=== PATIENT | male | born 1965 | race Caucasian/White ===

== ENCOUNTER 2016-09-24 11:37 | Emergency (ER) | payer MEDICARE ==
--- NOTE | 2016-09-24 12:04 | ER Document Report ---
ED Medical Screen (RME) - General Stated Complaint: CHEST WALL, BACK PAIN Time seen by provider: 12:02 Mode of Arrival: Ambulatory Information source: Patient Notes: 51-year-old male with right-sided back pain that starts in the right lower thoracic back radiates to the top of his head. radiates into the right scapula into the shoulder and through to his anterior chest. It originally started to thousand 13 but it has worsened over the past week. It's more with palpation and movement of his right shoulder. History of some thoracic herniated disks. Hx disc deg disease and fibromyalgia. I have greeted and performed a rapid initial assessment of this patient. A comprehensive ED assessment, evaluation of the patient, analysis of test results , and completion of the medical decision making process will be conducted by additional ED providers. Physical Exam - Vital signs Vitals: Temp Pulse Resp BP Pulse Ox 97.5 F 84 16 141/85 H 99 09/24/16 11:41 09/24/16 11:41 09/24/16 11:41 09/24/16 11:41 09/24/16 11:41 Course - Vital Signs Vital signs: Temp Pulse Resp BP Pulse Ox 97.5 F 84 16 141/85 H 99 09/24/16 11:41 09/24/16 11:41 09/24/16 11:41 09/24/16 11:41 09/24/16 11:41
--- NOTE | 2016-09-24 12:59 | EKG REPORT ---
SEVERITY:- NORMAL ECG - SINUS RHYTHM : Confirmed by: Sylvester Espinoza 24-Sep-2016 12:58:49
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
[2016-09-24 15:27] VITALS: BP 111/57
== END 2016-09-24 15:27 | disposition home or self-care (01) ==
LOC: ER 11:37
DX: S29.012A Strain of muscle and tendon of back wall of thorax, initial encounter (principal); M25.511 Pain in right shoulder; M54.9 Dorsalgia, unspecified; R07.89 Other chest pain; X58.XXXA Exposure to other specified factors, initial encounter
CPT/HCPCS: 71020; 93005; 93010; 99283

== ENCOUNTER 2018-07-06 07:30 | Observation (INO) | payer OTHER, MEDICARE ==
--- NOTE | 2018-07-06 07:59 | ER Document Report ---
ED General - General Chief Complaint: Rectal Abscess Stated Complaint: POSSIBLE ABSCESS Time Seen by Provider: 07/06/18 07:58 Notes: Patient is a 53-year-old male that presents to the emergency department for chief complaint of anal pain, and suspecting abscess. Patient states that his been having pain particularly bowel movements over the past month, but it got particularly worse on Friday and over the course of this weekend. He is noted some bloody drainage, into the anus, denies noting any pus drainage. He states he has had carbuncles in the past, and a history of hemorrhoids in the past as well. He currently rates his pain as a 9 out of 10, worse with sitting, worse with passing bowel movements. Describes as a constant aching and occasionally sharp sensation. Denies having fevers, chills, lightheadedness. He states due to the pain he did vomit, and he tried to squeeze it to drain it, and he states he passed out from that briefly. He denies any other complaints at this time. Past Medical History: Fibromyalgia, GERD Past Surgical History: Cervical spine fusion, ankle fusion Social History: Admits to rare alcohol use, denies tobacco or illicit drug use. Family History: Reviewed and noncontributory for presenting illness Allergies: Reviewed, see documented allergy list. REVIEW OF SYSTEMS: Other than noted above, the 12 point review of systems was reviewed with the patient and were negative, all pertinent findings are included in the HPI. PHYSICAL EXAMINATION: Vital signs reviewed, nursing noted reviewed. GENERAL: Well-appearing, well-nourished and appears uncomfortable HEAD: Atraumatic, normocephalic. EYES: Eyes appear normal, extraocular movements intact, sclera anicteric, conjunctiva are normal. ENT: nares patent, oropharynx clear without exudates. Moist mucous membranes. NECK: Normal range of motion, supple without lymphadenopathy LUNGS: Breath sounds clear to auscultation bilaterally and equal. No wheezes rales or rhonchi. HEART: Regular rate and rhythm without murmurs ABDOMEN: Soft, nontender, normoactive bowel sounds. No rebound, guarding, or rigidity. No masses appreciated. Anal exam: External anal exam demonstrates what appears to be possible external hemorrhoid at the 2 to 3 o'clock position, tenderness to palpation, visualized with ultrasound, no appreciable abscess, or underlying soft tissue mass. EXTREMITIES: Nontender, good range of motion, no pitting or edema. NEUROLOGICAL: No focal neurological deficits. Moves all extremities spontaneously Motor and sensory grossly intact on exam. PSYCH: Normal mood, normal affect. SKIN: Warm, Dry, normal turgor, no rashes or lesions noted on exposed skin TRAVEL OUTSIDE OF THE [place] IN LAST 30 DAYS: No - Related Data Allergies/Adverse Reactions: Sulfa (Sulfonamide Antibiotics) Allergy (Verified 07/06/18 07:31) Past Medical History - Social History Smoking Status: Never Smoker Family History: Arthritis, CAD, DM, Hyperlipidemia, Hypertension Renal/ Medical History: Denies: Hx Peritoneal Dialysis Musculoskeletal Medical History: Reports Hx Arthritis, Reports Hx Fibromyalgia, Reports Hx Muscle Weakness, Reports Hx Musculoskeletal Deformity, Reports Hx Musculoskeletal Trauma Traumatic Medical History: Reports: Hx Fractures Past Surgical History: Reports: Hx Abdominal Surgery - Hernia, Hx Orthopedic Surgery - neck, right ankle - Immunizations Immunizations up to date: Yes Hx Diphtheria, Pertussis, Tetanus Vaccination: Yes Physical Exam - Vital signs Vitals: Temp Pulse Resp BP Pulse Ox 98.0 F 86 16 138/85 H 99 07/06/18 07:34 07/06/18 07:34 07/06/18 07:34 07/06/18 07:34 07/06/18 07:34 Course - Re-evaluation Re-evalutation: Patient seen and examined, he was rather tender with palpation to the monty-anal region on the right, as noted nothing appreciated on ultrasound, I did call the surgeon automation tester Dr. Gu who came to see the patient in the ED, for evaluation, on his examination, he felt that the patient was experiencing a rectal abscess, and recommended operative intervention, which the patient was agreeable to. Patient had IV placed, IV fluids ordered, basic blood work and EKG ordered for preoperative evaluation. Patient agreeable to this plan of care. He was given 1 dose of Percocet for his pain, he had not eaten in several days. Blood work reviewed, mild leukocytosis, which is not unexpected for the patient' s presenting issue, and will be taken to the OR for operative management, patient stable prior to transfer to the OR. Laboratory 07/06/18 07/06/18 08:50 08:50 WBC 13.4 H RBC 4.73 Hgb 14.7 Hct 43.4 MCV 92 MCH 31.1 MCHC 33.9 RDW 13.1 Plt Count 225 Seg Neutrophils % 77.7 Lymphocytes % 12.0 L Monocytes % 9.4 Eosinophils % 0.4 Basophils % 0.5 Absolute Neutrophils 10.4 H Absolute Lymphocytes 1.6 Absolute Monocytes 1.3 Absolute Eosinophils 0.0 Absolute Basophils 0.1 Sodium 139.0 Potassium 4.1 Chloride 106 Carbon Dioxide 28 Anion Gap 5 BUN 12 Creatinine 0.94 Est GFR ( Amer) > 60 Est GFR (Non-Af Amer) > 60 Glucose 110 Calcium 9.3 - Vital Signs Vital signs: Temp Pulse Resp BP Pulse Ox 98.0 F 86 16 138/85 H 99 07/06/18 07:34 07/06/18 07:34 07/06/18 07:34 07/06/18 07:34 07/06/18 07:34 - Laboratory Result Diagrams: 07/06/18 08:50 07/06/18 08:50 Laboratory results interpreted by me: 07/06/18 08:50 WBC 13.4 H Lymphocytes % 12.0 L Absolute Neutrophils 10.4 H - EKG Interpretation by Me Additional EKG results interpreted by me: EKG demonstrates sinus rhythm with a ventricular rate of 64 bpm, normal axis, normal intervals, no evidence of acute ischemia on this EKG. Discharge - Discharge Clinical Impression: Perirectal abscess Condition: Stable Disposition: ADMITTED INPATIENT Admitting Provider: Surgicalist - Dr. Gu Unit Admitted: OR
[2018-07-06] MEDS ORDERED: OXYCODONE-ACETAMINOPHEN 5-325 MG TABLET PO ONE (08:18)
[2018-07-06] MEDS ORDERED: RINGERS SOLUTION,LACTATED 1,000 ML IV ONE (08:39)
[2018-07-06 09:00] LABS: ABSOLUTE BASOPHILS # (AUTO) 0.1 10^3/uL (0.0-0.2); ABSOLUTE LYMPHOCYTES (AUTO) 1.6 10^3/uL (0.5-4.7); ABSOLUTE MONOCYTES (AUTO) 1.3 10^3/uL (0.1-1.4); ABSOLUTE NEUT (AUTO) 10.4 10^3/uL (1.7-8.2); BASOPHILS % (AUTO) 0.5 % (0-2); EOSINOPHILS % (AUTO) 0.4 % (0-6); HEMATOCRIT 43.4 % (37.9-51.0); HEMOGLOBIN 14.7 g/dL (13.5-17.0); MEAN CORPUSCULAR HEMOGLOBIN 31.1 pg (27.0-33.4); MEAN CORPUSCULAR HGB CONC 33.9 g/dL (32.0-36.0); MEAN CORPUSCULAR VOLUME 92 fl (80-97); MONOCYTES % (AUTO) 9.4 % (3-13); PLATELET COUNT 225 10^3/uL (150-450); RED BLOOD COUNT 4.73 10^6/uL (4.35-5.55); RED CELL DISTRIBUTION WIDTH 13.1 % (11.5-14.0); SEGMENTED NEUTROPHILS % (AUTO) 77.7 % (42-78); TOTAL CELLS COUNTED % (AUTO) 100 %; WHITE BLOOD COUNT 13.4 10^3/uL (4.0-10.5)
[2018-07-06 09:26] LABS: ANION GAP 5 (5-19); BLOOD UREA NITROGEN 12 mg/dL (7-20); CALCIUM 9.3 mg/dL (8.4-10.2); CARBON DIOXIDE 28 mmol/L (22-30); CHLORIDE 106 mmol/L (98-107); GLUCOSE 110 mg/dL (75-110); POTASSIUM 4.1 mmol/L (3.6-5.0)
[2018-07-06] MEDS ORDERED: METRONIDAZOLE 500 MG/NS RTU 500 MG/100 ML RTUPB IV ONE (10:17)
[2018-07-06] MEDS ORDERED: CEFAZOLIN INJ 1 GM VIAL ONE (10:17)
[2018-07-06] MEDS ORDERED: PROPOFOL INJ 200 MG/20 ML VIAL IV ONE (10:20)
[2018-07-06] MEDS ORDERED: MIDAZOLAM 2 MG/2 ML INJ ONE (10:20)
[2018-07-06] MEDS ORDERED: FENTANYL CITRATE INJ/PF 100 MCG/2 ML AMPUL ONE (10:20)
[2018-07-06] MEDS ORDERED: BUPIVACAINE HCL/DEX-WATER/PF 15 MG/2 ML AMPULE ONE (10:29)
--- NOTE | 2018-07-06 10:36 | PDOC H&P ---
History of Present Illness Admission Date/PCP: 07/06/18 08:51 Patient complains of: Perirectal pain and drainage, fevers, chills History of Present Illness: LARA TAVERAS is a 53 year old male with a 3-day history of perirectal pain, erythema, and new onset drainage. The patient reports fevers and chills over the intervening days. The patient reports that he traveled to the emergency department because he could not go to work today because of the pain. His pain is sharp and stabbing. It radiates toward his perineum. His pain is unrelenting, and he rates it at 10 out of 10. The patient reports that this morning it began draining foul-smelling liquid. Palpation and movement make his pain worse. Nothing makes it better. The patient denies a history of Crohn 's disease or diabetes. Past Medical History Musculoskeltal Medical History: Reports: Arthritis, Fibromyalgia Past Surgical History Past Surgical History: Reports: Orthopedic Surgery - neck, right ankle Social History Smoking Status: Never Smoker Hx Recreational Drug Use: No - Advance Directive Resuscitation Status: Full Code Family History Family History: Arthritis, CAD, DM, Hyperlipidemia, Hypertension Parental Family History Reviewed: Yes Children Family History Reviewed: Yes Sibling(s) Family History Reviewed.: Yes Medication/Allergy Home Medications: Fluoxetine HCl [Prozac] 40 mg PO DAILY 07/06/18 Allergies/Adverse Reactions: Sulfa (Sulfonamide Antibiotics) Allergy (Verified 07/06/18 07:31) Review of Systems Constitutional: PRESENT: anorexia, chills, fatigue, fever(s), weakness. ABSENT : headache(s) Eyes: ABSENT: visual disturbances Ears: ABSENT: hearing changes Nose, Mouth, and Throat: ABSENT: sore throat Cardiovascular: ABSENT: chest pain, palpitations Respiratory: ABSENT: cough, dyspnea Gastrointestinal: PRESENT: nausea, other - Perirectal pain and drainage. ABSENT : abdominal pain Genitourinary: ABSENT: dysuria Musculoskeletal: ABSENT: back pain Integumentary: PRESENT: erythema - Very rectal. ABSENT: pruritus, rash Neurological: ABSENT: confusion, convulsions, dizziness, numbness Endocrine: ABSENT: cold intolerance, heat intolerance Hematologic/Lymphatic: ABSENT: easy bleeding, easy bruising Physical Exam Vital Signs: Temp Pulse Resp BP Pulse Ox 98.0 F 86 16 138/85 H 99 07/06/18 07:34 07/06/18 07:34 07/06/18 07:34 07/06/18 07:34 07/06/18 07:34 Intake & Output 07/05/18 07/06/18 07/07/18 06:59 06:59 06:59 Intake Total 1000 Balance 1000 General appearance: PRESENT: mild distress - Perirectal pain Head exam: PRESENT: atraumatic, normocephalic Eye exam: PRESENT: EOMI, PERRLA. ABSENT: scleral icterus Mouth exam: PRESENT: neck supple Neck exam: ABSENT: meningismus, tenderness, thyromegaly, tracheal deviation Respiratory exam: PRESENT: clear to auscultation karla, unlabored. ABSENT: chest wall tenderness, tachypnea, wheezes Cardiovascular exam: PRESENT: RRR Pulses: PRESENT: normal radial pulses Vascular exam: PRESENT: normal capillary refill. ABSENT: pallor GI/Abdominal exam: PRESENT: soft. ABSENT: distended, firm, tenderness Rectal exam: PRESENT: normal rectal tone, other - Perirectal abscess, draining purulent material Extremities exam: ABSENT: clubbing Musculoskeletal exam: ABSENT: deformity Neurological exam: PRESENT: alert, awake, oriented to person, oriented to place , oriented to time, oriented to situation, CN II-XII grossly intact Psychiatric exam: ABSENT: agitated, anxious, depressed Focused psych exam: ABSENT: delusional Skin exam: ABSENT: cyanosis, erythema, jaundice Assessment & Plan - Diagnosis (1) Perirectal abscess Is this a current diagnosis for this admission?: Yes - Plan Summary Plan Summary: This is a 53-year-old male with a moderate sized perirectal abscess. It is actively draining purulent material. He has erythema and tenderness extending out onto the buttock. I have recommended hospitalization, IV antibiotics, and operative drainage. The patient has agreed to this. Risks/benefits discussed, informed consent obtained, and all questions answered.
[2018-07-06] MEDS ORDERED: FENTANYL CITRATE INJ/PF 100 MCG/2 ML AMPUL IV PRN ×3 (11:00)
[2018-07-06] MEDS ORDERED: MEPERIDINE HCL/PF INJ 25 MG/1 ML DISP.SYRIN IV PRN (11:00)
[2018-07-06] MEDS ORDERED: DIPHENHYDRAMINE HCL 50 MG/ML VIAL IV PRN (11:00)
[2018-07-06] MEDS ORDERED: PROMETHAZINE HCL INJ 25 MG/1 ML VIAL IV PRN ×2 (11:00)
[2018-07-06] MEDS ORDERED: BUPIVACAINE HCL 0.25 % INJ/PF (2.5 MG/1 ML) 30 ML VIAL ONE (11:04)
[2018-07-06] MEDS ORDERED: BUPIVACAINE HCL 0.25 % INJ/PF (2.5 MG/1 ML) 30 ML VIAL INJ ONE (11:08)
[2018-07-06] MEDS ORDERED: BACITRACIN ZINC OINTMENT 15 GM ONE (11:15)
[2018-07-06] MEDS ORDERED: LIDOCAINE 2% JELLY 30 ML TUBE ONE (11:15)
[2018-07-06] MEDS ORDERED: ONDANSETRON HCL INJ/PF 4 MG/2 ML SDV IV PRN (11:23)
[2018-07-06] MEDS ORDERED: HYDROCODONE/ACETAMINOPHEN 10-325 MG TABLET PO PRN (11:25)
[2018-07-06] MEDS ORDERED: BACITRACIN ZINC OINTMENT 15 GM TP ONE (11:28)
[2018-07-06] MEDS ORDERED: LIDOCAINE 2% JELLY 5 ML TUBE MM ONE (11:29)
--- NOTE | 2018-07-06 11:35 | Operative Report ---
Nonrecallable Operative Report DATE OF SURGERY: 07/06/18 PREOPERATIVE DIAGNOSIS: Perirectal abscess POSTOPERATIVE DIAGNOSIS: Perirectal abscess OPERATION: Incision and drainage of perirectal abscess SURGEON: LUCILA KNOWLES ANESTHESIA: Spinal - With MAC TISSUE REMOVED OR ALTERED: None COMPLICATIONS: None apparent ESTIMATED BLOOD LOSS: Minimal PROCEDURE: Drains/implants: 4 x 4 gauze. Procedure in detail: After informed consent was obtained, the patient was brought to the operating room and laid in the left lateral decubitus position. The area of the rectum was prepped and draped in a normal sterile fashion. An anal block was created with quarter percent Marcaine. Once this was completed, a scalpel was used to incise the perirectal abscess. It was situated at approximately the 3 o'clock position. A cavity was identified, and purulent material was expressed. The cavity was laid open widely. The wound was then covered with 4 x 4 gauze. The procedure at this time was concluded. All sponge , instrument, and needle counts were correct x2. Condition: Stable.
[2018-07-06 13:21] VITALS: BP 124/61
--- NOTE | 2018-07-06 13:27 | EKG REPORT ---
SEVERITY:- NORMAL ECG - SINUS RHYTHM : Confirmed by: Peng Oden MD 06-Jul-2018 13:26:36
[2018-07-06] MEDS ORDERED: ONDANSETRON HCL INJ/PF 4 MG/2 ML SDV ONE (13:53)
[2018-07-06] MEDS ORDERED: KETOROLAC TROMETHAMINE INJ/PF 30 MG/1 ML SDV IV SCH (14:00)
--- NOTE | 2018-07-06 17:00 | PDOC DISCHARGE SUMMARY ---
General - Admit/Disc Date/PCP Admission Date/Primary Care Provider: 07/06/18 08:51 Discharge Date: 07/06/18 - Discharge Diagnosis (1) Perirectal abscess Is this a current diagnosis for this admission?: Yes - Additional Information Resuscitation Status: Full Code Discharge Diet: As Tolerated Discharge Activity: Activity As Tolerated, Balance Activity w/Rest Home Medications: Fluoxetine HCl [Prozac] 40 mg PO DAILY 07/06/18 History of Present Illness History of Present Illness: LARA TAVERAS is a 53 year old male with a 3-day history of perirectal pain, erythema, and new onset drainage. The patient reports fevers and chills over the intervening days. The patient reports that he traveled to the emergency department because he could not go to work today because of the pain. His pain is sharp and stabbing. It radiates toward his perineum. His pain is unrelenting, and he rates it at 10 out of 10. The patient reports that this morning it began draining foul-smelling liquid. Palpation and movement make his pain worse. Nothing makes it better. The patient denies a history of Crohn 's disease or diabetes. Hospital Course Hospital Course: The patient was taken to the operating room for incision and drainage of his perirectal abscess. This was successful. The patient was taken to the floor after surgery, in stable condition. The patient improved significantly. By 1700 on 07/06/2018 the patient was ambulating and his pain was controlled with oral medications. At this time, the patient requested discharge. I will discharge him on Flagyl 500 mg p.o. 3 times daily. Follow-up with me in my office in 1 week. Physical Exam Vital Signs: Temp Pulse Resp BP Pulse Ox 97.9 F 68 17 124/61 99 07/06/18 13:04 07/06/18 13:04 07/06/18 13:04 07/06/18 13:04 07/06/18 13:04 Intake & Output 07/05/18 07/06/18 07/07/18 06:59 06:59 06:59 Intake Total 1450 Output Total 5 Balance 1445 Qualifiers - * PATIENT BEING DISCHARGED WITH ANY OF THE FOLLOWING DIAGNOSIS: No Plan Discharge Plan: Discharge home. Diet as tolerated. Activity: Nonstrenuous. Follow-up with me in 7-10 days at [facility]. [place] 5/325 mg p.o. every 6 hours as needed for pain. Ibuprofen 800 mg p.o. 3 times daily with meals. Warm sits baths in soapy water twice daily and after bowel movements. Fiber supplement twice daily. Stool softeners as needed. Flagyl 500 mg p.o. 3 times daily times 7 days. Time Spent: Less than 30 Minutes
[2018-07-06] MEDS ORDERED: CEFAZOLIN 2 GM/D5W RTU 2 GM/50 ML RTUPB IV SCH (19:00)
[2018-07-06] MEDS ORDERED: METRONIDAZOLE 500 MG/NS RTU 500 MG/100 ML RTUPB IV SCH (19:00)
== END 2018-07-06 18:55 | disposition home or self-care (01) ==
LOC: ER 07:30 → EH 08:51 → INTOOBSV 08:51 → 2N 12:24
PROVIDERS: ATTEND Surgery
PROC: 0D9P0ZZ Drainage of Rectum, Open Approach (ICD-10-PCS; principal; 2018-07-06 10:30)
DX: K61.1 Rectal abscess (principal); R63.0 Anorexia; R53.83 Other fatigue; R50.9 Fever, unspecified; R53.1 Weakness; R11.2 Nausea with vomiting, unspecified; D72.829 Elevated white blood cell count, unspecified; Z87.19 Personal history of other diseases of the digestive system
CPT/HCPCS: 93005; 99284; 36415; 85025; 80048; 93010; 46040; J2250; J3490 ×2; J0690; J3010; J1885; J2405; J7120; J2704; 902

== ENCOUNTER 2019-04-23 14:15 | Emergency (ER) | payer MEDICARE ==
[2019-04-23 14:28] VITALS: BP 131/70
--- NOTE | 2019-04-23 15:37 | ER Document Report ---
ED Medical Screen (RME) - General Chief Complaint: Rectal Bleeding Stated Complaint: RECTAL BLEEDING,DISCHARGE Time Seen by Provider: 04/23/19 15:31 Mode of Arrival: Ambulatory Information source: Patient Notes: Patient is a 53-year-old male with past medical history of perirectal abscess presenting to the emergency department with complaints of low abdominal pain and pain, swelling and drainage from the rectal area. Patient reports he was seen here approximately 1 year ago for the same thing and was taken to the operating room. Patient denies any vomiting or fever. Exam: Mild lower abdominal tenderness with palpation. Rectal exam deferred until patient is in room. I have greeted and performed a rapid initial assessment of this patient. A comprehensive ED assessment and evaluation of the patient, analysis of test results and completion of the medical decision making process will be conducted by additional ED providers. I have specifically instructed the patient or family members with the patient to immediately return to any nursing staff should anything change in the patient's condition or with their chief complaint. This medical record was dictated with voice recognizing software. There may be grammatical, syntax errors that are unintended. TRAVEL OUTSIDE OF THE [place] IN LAST 30 DAYS: No - Related Data Allergies/Adverse Reactions: Sulfa (Sulfonamide Antibiotics) Allergy (Verified 07/06/18 07:31) Past Medical History Renal/ Medical History: Denies: Hx Peritoneal Dialysis Musculoskeltal Medical History: Reports Hx Arthritis, Reports Hx Fibromyalgia, Reports Hx Muscle Weakness, Reports Hx Musculoskeletal Deformity, Reports Hx Musculoskeletal Trauma Psychiatric Medical History: Reports: Hx Depression Traumatic Medical History: Reports: Hx Fractures Past Surgical History: Reports: Hx Abdominal Surgery - Hernia, Hx Orthopedic Surgery - neck, right ankle - Immunizations Immunizations up to date: Yes Hx Diphtheria, Pertussis, Tetanus Vaccination: Yes Physical Exam - Vital signs Vitals: Temp Pulse Resp BP Pulse Ox 97.7 F 64 18 131/70 H 98 04/23/19 14:27 04/23/19 14:27 04/23/19 14:27 04/23/19 14:27 04/23/19 14:27 Course - Vital Signs Vital signs: Temp Pulse Resp BP Pulse Ox 97.7 F 64 18 131/70 H 98 04/23/19 14:27 04/23/19 14:27 04/23/19 14:27 04/23/19 14:27 04/23/19 14:27
[2019-04-23 16:14] LABS: ABSOLUTE EOSINOPHILS # (AUTO) 0.1 10^3/uL (0.0-0.6); ABSOLUTE NEUT (AUTO) 5.8 10^3/uL (1.7-8.2); BASOPHILS % (AUTO) 0.5 % (0-2); HEMOGLOBIN 14.7 g/dL (13.5-17.0); LYMPHOCYTES % (AUTO) 22.3 % (13-45); MEAN CORPUSCULAR HEMOGLOBIN 31.1 pg (27.0-33.4); MEAN CORPUSCULAR HGB CONC 33.5 g/dL (32.0-36.0); MEAN CORPUSCULAR VOLUME 93 fl (80-97); MONOCYTES % (AUTO) 11.2 % (3-13); PLATELET COUNT 234 10^3/uL (150-450); RED BLOOD COUNT 4.74 10^6/uL (4.35-5.55); RED CELL DISTRIBUTION WIDTH 13.5 % (11.5-14.0); TOTAL CELLS COUNTED % (AUTO) 100 %
[2019-04-23 16:18] LABS: AMORPHOUS SEDIMENT,URINE TRACE /HPF; APPEARANCE,URINE SLIGHTLY-CLOUDY; BILIRUBIN,URINE NEGATIVE (NEGATIVE); COLOR,URINE YELLOW; GLUCOSE, URINE NEGATIVE (NEGATIVE); KETONES,URINE NEGATIVE (NEGATIVE); LEUKOCYTE ESTERASE,URINE NEGATIVE (NEGATIVE); NITRITE,URINE NEGATIVE (NEGATIVE); PROTEIN,URINE NEGATIVE (NEGATIVE); URINE SPECIFIC GRAVITY 1.026; UROBILINOGEN,URINE NEGATIVE mg/dL (<2.0)
[2019-04-23 16:45] LABS: ALBUMIN 3.9 g/dL (3.5-5.0); ALKALINE PHOSPHATASE 38 U/L (38-126); ANION GAP 7 (5-19); ASPARTATE AMINO TRANSFERASE 19 U/L (17-59); BILIRUBIN,DIRECT 0.1 mg/dL (0.0-0.4); BILIRUBIN,TOTAL 0.3 mg/dL (0.2-1.3); BLOOD UREA NITROGEN 9 mg/dL (7-20); CALCIUM 9.3 mg/dL (8.4-10.2); CARBON DIOXIDE 27 mmol/L (22-30); CHLORIDE 107 mmol/L (98-107); GLUCOSE 78 mg/dL (75-110); POTASSIUM 3.8 mmol/L (3.6-5.0); TOTAL PROTEIN 6.7 g/dL (6.3-8.2)
== END 2019-04-23 18:24 | disposition home or self-care (01) ==
LOC: ER 14:15
DX: Z53.21 Procedure and treatment not carried out due to patient leaving prior to being seen by health care provider (principal); K62.5 Hemorrhage of anus and rectum; R10.30 Lower abdominal pain, unspecified
CPT/HCPCS: 36415; 80053; 81001; 83690; 85025; 99281

== ENCOUNTER 2019-04-26 09:02 | Emergency (ER) | payer MEDICARE ==
--- NOTE | 2019-04-26 09:40 | ER Document Report ---
ED Medical Screen (RME) - General Chief Complaint: Rectal Bleeding Stated Complaint: RECTAL BLEEDING Time Seen by Provider: 04/26/19 09:38 Mode of Arrival: Ambulatory Information source: Patient Notes: Patient presents complaining of blood in the stool for the past 3 days. Patient reports low back pain abdominal pain that radiates into the hip area. Patient does report nausea and vomiting today and feeling weak. hx: Fibromyalgia, arthritis, rectal abscess I have greeted and performed a rapid initial assessment of this patient. A comprehensive ED assessment and evaluation of the patient, analysis of test results and completion of the medical decision making process will be conducted by additional ED providers. TRAVEL OUTSIDE OF THE [place] IN LAST 30 DAYS: No - Related Data Allergies/Adverse Reactions: Sulfa (Sulfonamide Antibiotics) Allergy (Verified 07/06/18 07:31) Past Medical History Renal/ Medical History: Denies: Hx Peritoneal Dialysis Musculoskeltal Medical History: Reports Hx Arthritis, Reports Hx Fibromyalgia, Reports Hx Muscle Weakness, Reports Hx Musculoskeletal Deformity, Reports Hx Musculoskeletal Trauma Psychiatric Medical History: Reports: Hx Depression Traumatic Medical History: Reports: Hx Fractures Past Surgical History: Reports: Hx Abdominal Surgery - Hernia, Hx Orthopedic Surgery - neck, right ankle - Immunizations Immunizations up to date: Yes Hx Diphtheria, Pertussis, Tetanus Vaccination: Yes Physical Exam - Vital signs Vitals: Temp Pulse Resp BP Pulse Ox 98.4 F 60 16 137/75 H 99 04/26/19 09:21 04/26/19 09:21 04/26/19 09:21 04/26/19 09:21 04/26/19 09:21 - Abdominal Tenderness: Tender - Lower abdomen Course - Vital Signs Vital signs: Temp Pulse Resp BP Pulse Ox 98.4 F 60 16 137/75 H 99 04/26/19 09:21 04/26/19 09:21 04/26/19 09:21 04/26/19 09:21 04/26/19 09:21 - Laboratory Result Diagrams: 04/26/19 09:25 04/26/19 09:25
[2019-04-26 09:43] LABS: ABSOLUTE BASOPHILS # (AUTO) 0.1 10^3/uL (0.0-0.2); ABSOLUTE LYMPHOCYTES (AUTO) 1.1 10^3/uL (0.5-4.7); ABSOLUTE MONOCYTES (AUTO) 1.1 10^3/uL (0.1-1.4); BASOPHILS % (AUTO) 0.4 % (0-2); EOSINOPHILS % (AUTO) 0.2 % (0-6); HEMATOCRIT 44.2 % (37.9-51.0); HEMOGLOBIN 14.6 g/dL (13.5-17.0); LYMPHOCYTES % (AUTO) 8.5 % (13-45); MEAN CORPUSCULAR HEMOGLOBIN 30.5 pg (27.0-33.4); MEAN CORPUSCULAR HGB CONC 33.1 g/dL (32.0-36.0); MEAN CORPUSCULAR VOLUME 92 fl (80-97); MONOCYTES % (AUTO) 8.5 % (3-13); PLATELET COUNT 234 10^3/uL (150-450); RED BLOOD COUNT 4.81 10^6/uL (4.35-5.55); RED CELL DISTRIBUTION WIDTH 13.7 % (11.5-14.0); SEGMENTED NEUTROPHILS % (AUTO) 82.4 % (42-78); TOTAL CELLS COUNTED % (AUTO) 100 %; WHITE BLOOD COUNT 13.4 10^3/uL (4.0-10.5)
[2019-04-26 09:48] LABS: PARTIAL THROMBOPLASTIN TIME 29.3 SEC (23.5-35.8); PROTHROMBIN TIME 13.2 SEC (11.4-15.4)
[2019-04-26 10:11] LABS: ALKALINE PHOSPHATASE 52 U/L (38-126); ANION GAP 8 (5-19); ASPARTATE AMINO TRANSFERASE 17 U/L (17-59); BILIRUBIN,DIRECT 0.2 mg/dL (0.0-0.4); BILIRUBIN,TOTAL 0.6 mg/dL (0.2-1.3); BLOOD UREA NITROGEN 12 mg/dL (7-20); CALCIUM 9.5 mg/dL (8.4-10.2); CARBON DIOXIDE 27 mmol/L (22-30); CHLORIDE 104 mmol/L (98-107); GLUCOSE 106 mg/dL (75-110); POTASSIUM 4.4 mmol/L (3.6-5.0); TOTAL PROTEIN 6.9 g/dL (6.3-8.2)
[2019-04-26] MEDS ORDERED: ACETAMINOPHEN 325 MG TABLET PO ONE (11:10)
[2019-04-26 12:11] LABS: APPEARANCE,URINE CLEAR; BILIRUBIN,URINE NEGATIVE (NEGATIVE); COLOR,URINE YELLOW; GLUCOSE, URINE NEGATIVE (NEGATIVE); KETONES,URINE TRACE mg/dL (NEGATIVE); LEUKOCYTE ESTERASE,URINE NEGATIVE (NEGATIVE); NITRITE,URINE NEGATIVE (NEGATIVE); PROTEIN,URINE NEGATIVE (NEGATIVE); URINE SPECIFIC GRAVITY 1.015; UROBILINOGEN,URINE NEGATIVE mg/dL (<2.0)
--- NOTE | 2019-04-26 14:15 | ER Document Report ---
Entered by MIMI JIMENEZ SCRIBE 04/26/19 1153 Acting as scribe for:GAMA MARIANO MD ED GI Bleed / Rectal Pain - General Chief Complaint: Rectal Bleeding Stated Complaint: RECTAL BLEEDING Time Seen by Provider: 04/26/19 09:38 Mode of Arrival: Ambulatory Information source: Patient, [facility] Records Notes: This 53-year-old male patient comes emergency room complaining of rectal bleeding and pelvic pain with pain between his hips. He reports he had diarrhea for the past 2 weeks. He is noted some blood, also green and milky-looking substance. He did present on 04/23/2019 late at night when it was quite busy in the emergency room and he left without being seen. He does report a 45 pound weight loss over the past 6 months, however looking at prior records he has lost only 16 pounds since June 2018. TRAVEL OUTSIDE OF THE [place] 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 Lives with: Family Family History: Arthritis, CAD, DM, Hyperlipidemia, Hypertension Patient has suicidal ideation: No Patient has homicidal ideation: No Musculoskeletal Medical History: Reports Hx Arthritis, Reports Hx Fibromyalgia, Reports Hx Muscle Weakness, Reports Hx Musculoskeletal Deformity, Reports Hx Musculoskeletal Trauma Psychiatric Medical History: Reports: Hx Depression Traumatic Medical History: Reports: Hx Fractures Past Surgical History: Reports: Hx Abdominal Surgery - Hernia, Hx Orthopedic Surgery - neck, right ankle, Other - perirectal abscess - Immunizations Immunizations up to date: Yes Hx Diphtheria, Pertussis, Tetanus Vaccination: Yes Review of Systems - Review of Systems Constitutional: See HPI, Weight loss - 45 pound weight loss over x6 months EENT: No symptoms reported Cardiovascular: No symptoms reported Respiratory: No symptoms reported Gastrointestinal: See HPI, Abdominal pain, Diarrhea, Other - rectal pain, rectal bleeding Genitourinary: No symptoms reported Male Genitourinary: No symptoms reported Musculoskeletal: See HPI, Back pain Skin: No symptoms reported Hematologic/Lymphatic: No symptoms reported Neurological/Psychological: No symptoms reported -: Yes All other systems reviewed and negative Physical Exam - Vital signs Vitals: Temp Pulse Resp BP Pulse Ox 98.4 F 60 16 137/75 H 99 04/26/19 09:21 04/26/19 09:21 04/26/19 09:21 04/26/19 09:21 04/26/19 09:21 - Notes Notes: Physical Exam: General: Alert, appears well. HEENT: Normocephalic. Atraumatic. PERRL. Extraocular movements intact. Orophary nx clear. Neck: Supple. Non-tender. Respiratory: No respiratory distress. Clear and equal breath sounds bilaterally. Cardiovascular: Regular rate and rhythm. Abdominal: Palpation tenderness in the mid to upper left quadrant of the abdomen and going down along the left abdomen toward the pelvis. No distension. Normal Bowel Sounds. Rectal: Perfomed in the knee chest position, fissure at the 6 o'clock position, no bleeding. Pain when passing the finger through the anal sphincter, entire rectal mucosal wall seems to be tender with palpation. Back: No gross abnormalities. Extremities: Moves all four extremities. Upper extremities: Normal inspection. Normal ROM. Lower extremities: Normal inspection. No edema. Normal ROM. Neurological: Normal cognition. AAOx4. Normal speech. Psychological: Normal affect. Normal Mood. Skin: Warm. Dry. Normal color. Course - Vital Signs Vital signs: Temp Pulse Resp BP Pulse Ox 98.4 F 60 16 137/75 H 99 04/26/19 09:21 04/26/19 09:21 04/26/19 09:21 04/26/19 09:21 04/26/19 09:21 - Laboratory Result Diagrams: 04/26/19 09:25 04/26/19 09:25 Laboratory results interpreted by me: 04/26/19 04/26/19 09:25 11:57 WBC 13.4 H Lymph % (Auto) 8.5 L Absolute Neuts (auto) 11.0 H Seg Neutrophils % 82.4 H Urine Ketones TRACE H - Diagnostic Test Radiology reviewed: Reports reviewed - CT scan of the abdomen and pelvis with IV and oral contrast shows diverticulitis in the splenic flexure region. Discharge - Discharge Clinical Impression: Diverticulitis Abdominal pain Qualifiers: Abdominal location: lower abdomen, unspecified Qualified Code(s): R10.30 - Lower abdominal pain, unspecified Condition: Stable Disposition: HOME, SELF-CARE Additional Instructions: Diverticulitis You have been diagnosed as having diverticulitis. This is an inflammation of a small pouch attached to the colon, called a diverticulum. Many of these small pouches can form on the colon as you get older. They are often caused by constipation. When inflamed or infected, symptoms arise -- usually abdominal pain, constipation or diarrhea, fever, and blood in the stool. Severe diverticulitis may require hospitalization. More mild cases are usually treated with antibiotics and clear liquid diet. As you improve, a diet low in residue (one which forms little stool) is prescribed. When you are better, you should eat a high-fiber diet. Stool softeners (like Metamucil) are usually recommended. Call the doctor or go to the hospital if there is increasing pain, vomiting, high fever, large amounts of blood passed, or if bowel movements cease. 888 Stay on clear liquid diet for the next 12 to 24 hours. Start the Cipro and Flagyl today. Take the medications as prescribed for pain if needed. 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 RETURN TO THE EMERGENCY ROOM IF ANY NEW OR WORSENING SYMPTOMS. Prescriptions: Ciprofloxacin HCl [Cipro 750 mg Tablet] 750 mg PO BID #14 tablet Metronidazole [Flagyl 500 mg Tablet] 500 mg PO TID #21 tablet Hydrocodone/Acetaminophen [[place] 5-325 mg Tablet] 1 tab PO Q4 PRN #12 tablet PRN Reason: Referrals: BRIA VERA MD [ACTIVE STAFF] - Follow up as needed GILDA MATTHEW MD [ACTIVE STAFF] - Follow up as needed Scribe Attestation: 04/26/19 14:16 I personally performed the services described in the documentation, reviewed and edited the documentation which was dictated to the scribe in my presence, and it accurately records my words and actions. I personally performed the services described in the documentation, reviewed and edited the documentation which was dictated to the scribe in my presence, and it accurately records my words and actions.
[2019-04-26] MEDS ORDERED: METHYLPREDNISOLONE INJ 125 MG/2 ML SDV IV ONE (15:37)
--- NOTE | 2019-04-26 15:44 | RADIOLOGY REPORT (SQ) ---
EXAM DESCRIPTION: CT ABD/PELVIS WITH IV ORAL COMPLETED DATE/TIME: 04/26/2019 3:02 pm REASON FOR STUDY: Pelvic pain, rectal bleeding, weight loss COMPARISON: None. TECHNIQUE: CT scan of the abdomen and pelvis performed using helical scanning technique with dynamic intravenous contrast injection. Patient drank oral contrast. Images reviewed with lung, soft tissue , and bone windows. Delayed images for evaluation of the urinary system also acquired. All images sto red on PACS. All CT scanners at this facility use dose modulation, iterative reconstruction, and/or weight based d osing when appropriate to reduce radiation dose to as low as reasonably achievable (ALARA). [facility]: Dose Right [facility]: CareDose [facility]: Dose Right [facility]: Teradose 4D [facility]: [employer] CONTRAST TYPE AND DOSE: contrast/concentration: Isovue 350.00 mg/ml; Total Contrast Delivered: 80.0 ml; Total Saline Delivered: 68.0 ml RENAL FUNCTION: Creatinine 0.9 RADIATION DOSE: CT Rad equipment meets quality standard of care and radiation dose reduction techniq ues were employed. CTDIvol: 5.4 - 7.3 mGy. DLP: 1052 mGy-cm.. LIMITATIONS: None. FINDINGS: LOWER CHEST: No significant findings. No nodules or infiltrates. LIVER: Normal size. No masses. No dilated ducts. SPLEEN: Normal size. No focal lesions. PANCREAS: No masses. No significant calcifications. No adjacent inflammation or peripancreatic fluid collections. Pancreatic duct not dilated. GALLBLADDER: No identified stones by CT criteria. No inflammatory changes to suggest cholecystitis. ADRENAL GLANDS: No significant masses or asymmetry. RIGHT KIDNEY AND URETER: No solid masses. No significant calcifications. No hydronephrosis or hyd roureter. LEFT KIDNEY AND URETER: No solid masses. No significant calcifications. No hydronephrosis or hydr oureter. AORTA AND VESSELS: No aneurysm. No dissection. Renal arteries, SMA, celiac without stenosis. RETROPERITONEUM: No retroperitoneal adenopathy, hemorrhage or masses. BOWEL AND PERITONEAL CAVITY: Patient drank oral contrast. On axial images 19 through 28, there is sp lenic flexure colon wall thickening and luminal narrowing with an inflamed diverticulum present from acute diverticulitis. No adjacent free air or free fluid. No abscess. Descending and sigmoid colon heavy burden of diverticulosis without CT signs of acute diverticulitis. No CT evidence of bowel obstruction or free intraperitoneal air or fluid. Findings discussed with Dr Jorge Luis Patterson in the emergency room. APPENDIX: Normal. PELVIS: No mass. No free fluid. Normal bladder. Colonic diverticulosis without CT signs of acute di verticulitis. ABDOMINAL WALL: No masses. No hernias. BONES: No significant or acute findings. OTHER: No other significant finding. IMPRESSION: Splenic flexure colon diverticulitis. No abscess. No free air. Findings discussed wit h the emergency room attending physician. TECHNICAL DOCUMENTATION: JOB ID: [id number] Quality ID # [id number]: Final reports with documentation of one or more dose reduction techniques (e.g., Au tomated exposure control, adjustment of the mA and/or kV according to patient size, use of iterative reconstruction technique) 2010 [employer]- All Rights Reserved Reading location - IP/workstation name: [email or web address]
[2019-04-26] MEDS ORDERED: PREDNISONE 20 MG TABLET PO ONE (15:46)
[2019-04-26] MEDS ORDERED: ONDANSETRON HCL INJ/PF 4 MG/2 ML SDV IV ONE (15:46)
[2019-04-26] MEDS ORDERED: CIPROFLOXACIN HCL 500 MG TABLET PO ONE ×2 (15:46→16:05)
[2019-04-26] MEDS ORDERED: METRONIDAZOLE 500 MG TABLET PO ONE (15:46)
[2019-04-26] MEDS ORDERED: CIPROFLOXACIN HCL 750 MG TABLET PO ONE (16:04)
[2019-04-26 16:22] VITALS: BP 133/83
== END 2019-04-26 16:22 | disposition home or self-care (01) ==
LOC: ER 09:02
DX: K57.92 Diverticulitis of intestine, part unspecified, without perforation or abscess without bleeding (principal); R10.30 Lower abdominal pain, unspecified; K62.5 Hemorrhage of anus and rectum; R10.2 Pelvic and perineal pain; R19.7 Diarrhea, unspecified; Z87.891 Personal history of nicotine dependence
CPT/HCPCS: 99284; 96374; 36415; 85025; 85610; 85730; 80053; 81001; 74177; A9270 ×3; J2405